=== PATIENT | male | born 1975 | race Caucasian/White ===

== ENCOUNTER 2021-09-12 18:57 | Inpatient (IN) | payer SELFPAY ==
[2021-09-12] MEDS ORDERED: Ketorolac Tromethamine 30 MG/ML VIAL ONE (20:10)
[2021-09-12] MEDS ORDERED: Morphine 4 MG/ML VIAL ONE (20:10)
[2021-09-12] MEDS ORDERED: cefTRIAXone\\ROCEPHIN 1 GM VIAL ONE (20:10)
[2021-09-12 20:36] LABS: Hemoglobin 15.6 g/dL (13.5-17.5); Mean Corpuscular HGB CONC 37.2 g/dL (32.0-36.0); Mean Corpuscular Hemoglobin 31.4 pg (27.0-33.0); Mean Corpuscular Volume 84.3 fl (81.2-95.1); Mean Platelet Volume 8.9 fl (7.4-10.4); Platelet Count 243 10x3/uL (150-450); RBC Distribution Width 13.2 % (11.5-14.5); Red Blood Cell (RBC) Count 4.97 10x6/uL (4.32-5.72); White Blood Cell (WBC) Count 7.7 10x3/uL (3.5-10.5)
[2021-09-12 20:38] LABS: Manual Diff?? YES
[2021-09-12 20:39] LABS: MDiff Complete? YES
[2021-09-12 20:52] LABS: ALT (SGPT) 33 U/L (8-55); AST (SGOT) 22 U/L (5-34); Albumin 3.8 g/dL (3.5-5.0); Alkaline Phosphatase 68 U/L (40-110); Anion Gap 16 mmol/L (10-20); BUN (Urea Nitrogen) 14 mg/dL (8.9-20.6); Bilirubin, Total 0.8 mg/dL (0.2-1.2); Calc. Creatinine Clearance 0 mL/min (70-130); Calcium 9.1 mg/dL (7.8-10.44); Carbon Dioxide 24 mmol/L (22-29); Chloride 100 mmol/L (98-107); Estimated GFR 112; Globulin 3.2 g/dL (2.4-3.5); Glucose 110 mg/dL (70-105); Lipase 57 U/L (8-78); Magnesium 1.9 mg/dL (1.6-2.6); Sodium 136 mmol/L (136-145)
[2021-09-12 21:40] LABS: Band 12 % (5-11); Eosinophils 3 % (0-10); Lymphocytes 12 % (21-51); Monocytes 11 % (0-10); Neutrophil 62 % (42-75); Platelet Morphology Comment Appears Adequate
[2021-09-12] MEDS ORDERED: Calcium Carbonate 500 MG ChewTAB PO PRN (22:24)
[2021-09-12] MEDS ORDERED: Acetaminophen 325 MG TAB PO PRN (22:24)
[2021-09-12] MEDS ORDERED: Ondansetron PF 4 MG/2 ML Vial IVP PRN (22:24)
[2021-09-12] MEDS ORDERED: Morphine 2 MG/ML VIAL SLOW IVP PRN (23:00)
[2021-09-12] MEDS ORDERED: Pharmacy to Dose ABX/VANCOMYCIN IVPB PRN (23:09)
[2021-09-12 23:30] VITALS: BMI 25.2
[2021-09-12] MEDS ORDERED: Vancomycin HCl 500 MG in Sodium Chloride 0.9% 100 ML IVPB SCH (23:59)
[2021-09-13] MEDS: Lactated Ringer's 1,000 ML IV SCH ×3 (02:35→22:40)
[2021-09-13] MEDS: Ketorolac Tromethamine 30 MG/ML VIAL IVP SCH ×3 (02:40→17:07)
[2021-09-13 05:25] LABS: Hemoglobin 14.3 g/dL (13.5-17.5); Mean Corpuscular HGB CONC 36.9 g/dL (32.0-36.0); Mean Corpuscular Hemoglobin 31.3 pg (27.0-33.0); Mean Corpuscular Volume 84.9 fl (81.2-95.1); Mean Platelet Volume 8.9 fl (7.4-10.4); Platelet Count 223 10x3/uL (150-450); RBC Distribution Width 13.2 % (11.5-14.5); Red Blood Cell (RBC) Count 4.57 10x6/uL (4.32-5.72); White Blood Cell (WBC) Count 7.1 10x3/uL (3.5-10.5)
[2021-09-13 05:49] LABS: Anion Gap 13 mmol/L (10-20); BUN (Urea Nitrogen) 11 mg/dL (8.9-20.6); CK (CPK) 68 U/L (30-200); Calc. Creatinine Clearance 144 mL/min (70-130); Calcium 8.3 mg/dL (7.8-10.44); Carbon Dioxide 26 mmol/L (22-29); Chloride 105 mmol/L (98-107); Estimated GFR 114; Glucose 101 mg/dL (70-105); Potassium 4.1 mmol/L (3.5-5.1); Sodium 140 mmol/L (136-145)
[2021-09-13 06:10] LABS: MDiff Complete? YES; Manual Diff?? YES
[2021-09-13 07:42] LABS: Band 7 % (5-11); Eosinophils 1 % (0-10); Lymphocytes 24 % (21-51); Monocytes 14 % (0-10); Neutrophil 52 % (42-75); Nucleated RBC 1 % (0); Reactive Lymphocytes 2 % (0-10)
[2021-09-13 07:43] LABS: Platelet Morphology Comment Appears Adequate
[2021-09-13] MEDS ORDERED: Meropenem 1 GM in Sodium Chloride 0.9% 100 ML IVPB SCH ×2 (08:49→10:00)
[2021-09-13] MEDS ORDERED: Enoxaparin Sodium 40 MG/0.4 ML SYRINGE SC SCH (09:00)
[2021-09-13] MEDS: Nicotine 21 MG PATCH TD SCH (09:21)
[2021-09-13] MEDS: Vancomycin HCl 1 GM in Sodium Chloride 0.9% 250 ML 250 ML IVPB SCH ×2 (09:22→17:03)
[2021-09-13 10:53] LABS: SARS-CoV-2 NAA Rapid Test DETECTED (NotDetected)
[2021-09-13] MEDS: Clindamycin/D5W 900 MG in Premix Bag 1 BAG IVPB SCH ×2 (12:29→20:50)
[2021-09-13 13:28] LABS: Hemoglobin A1c 4.3 % (4.0-6.0)
[2021-09-13] MEDS ORDERED: Neomycin-Polymyxin 1 ML AMP ONE (15:10)
[2021-09-13] MEDS ORDERED: PROPOFOL 20 ML ONE (17:09)
[2021-09-13] MEDS ORDERED: Lidocaine 2% PF 5 ML VIAL ONE (17:10)
[2021-09-13] MEDS ORDERED: Fentanyl 250 MCG/5 ML VIAL ONE (17:10)
[2021-09-13] MEDS ORDERED: Fentanyl 100 MCG/2 ML VIAL ONE (17:28)
[2021-09-13] MEDS ORDERED: Ondansetron PF 4 MG/2 ML Vial ONE (17:29)
[2021-09-13] MEDS ORDERED: cefTRIAXone\\ROCEPHIN 2 GM in Sodium Chloride 0.9% 100 ML IVPB SCH (20:00)
[2021-09-13] MEDS: HYDROcodone/Acetaminophen 5/325 mg Tablet PO PRN (20:50)
[2021-09-13] MEDS: Meropenem 1 GM in Sodium Chloride 0.9% 100 ML IVPB SCH (21:58)
[2021-09-13 23:31] LABS: Vancomycin, Trough 14.3 ug/mL
[2021-09-14] MEDS: Vancomycin HCl 1 GM in Sodium Chloride 0.9% 250 ML 250 ML IVPB SCH ×4 (01:00→23:21)
[2021-09-14] MEDS: Clindamycin/D5W 900 MG in Premix Bag 1 BAG IVPB SCH ×3 (02:53→17:52)
[2021-09-14] MEDS: HYDROcodone/Acetaminophen 5/325 mg Tablet PO PRN ×4 (02:54→21:42)
[2021-09-14] MEDS: Meropenem 1 GM in Sodium Chloride 0.9% 100 ML IVPB SCH ×3 (04:08→18:57)
[2021-09-14 04:14] LABS: #Eosinphils 0.1 10x3/uL (0.0-0.5); #Monocytes 1.2 10x3/uL (0.0-1.1); #Neutrophils 3.9 10x3/uL (1.5-8.4); %Basophils 0.1 % (0.0-2.0); %Eosinophils 1.6 % (0.0-6.0); %Lymphocytes 26.4 % (18.0-47.0); %Monocytes 16.5 % (0.0-10.0); %Neutrophils 55.3 % (40.0-75.0); Hemoglobin 13.2 g/dL (13.5-17.5); Mean Corpuscular HGB CONC 36.2 g/dL (32.0-36.0); Mean Corpuscular Volume 85.7 fl (81.2-95.1); Platelet Count 193 10x3/uL (150-450); RBC Distribution Width 13.4 % (11.5-14.5); Red Blood Cell (RBC) Count 4.26 10x6/uL (4.32-5.72)
[2021-09-14 06:52] LABS: ALT (SGPT) 21 U/L (8-55); AST (SGOT) 16 U/L (5-34); Albumin 3.3 g/dL (3.5-5.0); Alkaline Phosphatase 60 U/L (40-110); Anion Gap 14 mmol/L (10-20); BUN (Urea Nitrogen) 6 mg/dL (8.9-20.6); Bilirubin, Direct 0.2 mg/dL (0.1-0.3); Bilirubin, Total 0.5 mg/dL (0.2-1.2); CRP (Inflammatory) 11.77 mg/dL (= or < 0.5); Calc. Creatinine Clearance 154 mL/min (70-130); Calcium 8.3 mg/dL (7.8-10.44); Carbon Dioxide 26 mmol/L (22-29); Cardiac Risk 3.3 (Less than 4.5); Chloride 105 mmol/L (98-107); Cholesterol 93 mg/dl (< 200 Desired); Estimated GFR 116; Glucose 76 mg/dL (70-105); HDL Cholesterol 28 mg/dL (>60 Neg Risk); LDL Cholesterol, Calculated 44 mg/dL; Potassium 4.5 mmol/L (3.5-5.1); Protein, Total 6.3 g/dL (6.0-8.3); Sodium 140 mmol/L (136-145); Triglycerides 105 mg/dL (Less than 150)
[2021-09-14] MEDS: Nicotine 21 MG PATCH TD SCH (08:05)
[2021-09-14 13:12] LABS: Complement-C4 28.5 mg/dL (15-53)
[2021-09-14 23:50] LABS: Vancomycin, Trough 12.6 ug/mL
[2021-09-15] MEDS: Clindamycin/D5W 900 MG in Premix Bag 1 BAG IVPB SCH (02:35)
[2021-09-15] MEDS: HYDROcodone/Acetaminophen 5/325 mg Tablet PO PRN ×4 (03:04→20:23)
[2021-09-15] MEDS: Meropenem 1 GM in Sodium Chloride 0.9% 100 ML IVPB SCH ×3 (04:12→16:59)
[2021-09-15 06:10] LABS: Anion Gap 14 mmol/L (10-20); BUN (Urea Nitrogen) 8 mg/dL (8.9-20.6); Calc. Creatinine Clearance 159 mL/min (70-130); Calcium 8.6 mg/dL (7.8-10.44); Carbon Dioxide 27 mmol/L (22-29); Chloride 103 mmol/L (98-107); Estimated GFR 117; Glucose 98 mg/dL (70-105); Potassium 4.5 mmol/L (3.5-5.1); Sodium 139 mmol/L (136-145)
[2021-09-15 06:20] LABS: #Eosinphils 0.2 10x3/uL (0.0-0.5); #Monocytes 0.7 10x3/uL (0.0-1.1); #Neutrophils 2.6 10x3/uL (1.5-8.4); %Basophils 0.2 % (0.0-2.0); %Lymphocytes 33.5 % (18.0-47.0); %Monocytes 13.1 % (0.0-10.0); %Neutrophils 49.6 % (40.0-75.0); Hemoglobin 14.1 g/dL (13.5-17.5); Mean Corpuscular HGB CONC 36.6 g/dL (32.0-36.0); Mean Corpuscular Hemoglobin 30.5 pg (27.0-33.0); Mean Corpuscular Volume 83.2 fl (81.2-95.1); Platelet Count 237 10x3/uL (150-450); RBC Distribution Width 12.8 % (11.5-14.5); Red Blood Cell (RBC) Count 4.63 10x6/uL (4.32-5.72); White Blood Cell (WBC) Count 5.3 10x3/uL (3.5-10.5)
[2021-09-15] MEDS: Senokot S 8.6-50 MG TAB PO PRN (09:29)
[2021-09-15] MEDS: Nicotine 21 MG PATCH TD SCH (09:29)
[2021-09-15] MEDS: VANCOMYCIN 1.25 GM in Sodium Chloride 0.9% 250 ML 250 ML IVPB SCH ×2 (10:24→16:59)
[2021-09-15] MEDS ORDERED: Morphine 4 MG/ML VIAL ONE (12:04)
[2021-09-15] MEDS ORDERED: Morphine 4 MG/ML VIAL SLOW IVP SCH (13:00)
[2021-09-15 14:34] LABS: HIV (1/2) Antibody/Antigen Non-Reactive (NonReactive); HIV 1/2 INDEX 0.11 S/CO (<1.00); Syphilis Antibody Nonreactive (Nonreactive); Syphilis Antibody Index 0.06 S/CO (<1.00 Non-Reactive)
[2021-09-15] MEDS ORDERED: VANCOMYCIN 1.25 GM/250 ML BAG 1.25 GM in Premix Bag 1 BAG IVPB SCH (23:59)
[2021-09-16] MEDS: Senokot S 8.6-50 MG TAB PO PRN ×2 (00:51→08:57)
[2021-09-16 01:29] LABS: Hep C IgG Ab Reflex HepC Qnt (NonReactive)
[2021-09-16 01:30] LABS: Hep C Index 16.33 S/CO (0-0.79)
[2021-09-16] MEDS: Meropenem 1 GM in Sodium Chloride 0.9% 100 ML IVPB SCH ×3 (05:16→17:41)
[2021-09-16 05:42] LABS: #Eosinphils 0.2 10x3/uL (0.0-0.5); #Monocytes 0.5 10x3/uL (0.0-1.1); #Neutrophils 2.3 10x3/uL (1.5-8.4); %Basophils 0.4 % (0.0-2.0); %Eosinophils 4.9 % (0.0-6.0); %Lymphocytes 38.4 % (18.0-47.0); %Monocytes 9.6 % (0.0-10.0); %Neutrophils 45.9 % (40.0-75.0); Hemoglobin 14.6 g/dL (13.5-17.5); Mean Corpuscular HGB CONC 37.2 g/dL (32.0-36.0); Mean Corpuscular Hemoglobin 30.9 pg (27.0-33.0); Mean Corpuscular Volume 82.9 fl (81.2-95.1); Mean Platelet Volume 8.8 fl (7.4-10.4); Platelet Count 284 10x3/uL (150-450); RBC Distribution Width 12.9 % (11.5-14.5); Red Blood Cell (RBC) Count 4.73 10x6/uL (4.32-5.72); White Blood Cell (WBC) Count 4.9 10x3/uL (3.5-10.5)
[2021-09-16 05:48] LABS: Anion Gap 15 mmol/L (10-20); BUN (Urea Nitrogen) 8 mg/dL (8.9-20.6); Calc. Creatinine Clearance 159 mL/min (70-130); Calcium 8.8 mg/dL (7.8-10.44); Carbon Dioxide 27 mmol/L (22-29); Chloride 103 mmol/L (98-107); Estimated GFR 117; Glucose 90 mg/dL (70-105); Potassium 4.8 mmol/L (3.5-5.1); Sodium 140 mmol/L (136-145)
[2021-09-16 07:50] LABS: Vancomycin, Trough 23.8 ug/mL
[2021-09-16] MEDS: Enoxaparin Sodium 40 MG/0.4 ML SYRINGE SC SCH (08:57)
[2021-09-16] MEDS: HYDROcodone/Acetaminophen 5/325 mg Tablet PO PRN ×4 (08:57→22:15)
[2021-09-16] MEDS: Nicotine 21 MG PATCH TD SCH (10:15)
[2021-09-16] MEDS: Vancomycin HCl 1 GM in Sodium Chloride 0.9% 250 ML 250 ML IVPB SCH ×2 (11:50→22:21)
[2021-09-16] MEDS: Morphine 4 MG/ML VIAL SLOW IVP PRN (14:00)
[2021-09-17] MEDS: Meropenem 1 GM in Sodium Chloride 0.9% 100 ML IVPB SCH ×3 (02:08→08:45)
[2021-09-17] MEDS: Vancomycin HCl 1 GM in Sodium Chloride 0.9% 250 ML 250 ML IVPB SCH ×3 (04:57→17:07)
[2021-09-17] MEDS: Enoxaparin Sodium 40 MG/0.4 ML SYRINGE SC SCH (08:40)
[2021-09-17] MEDS: HYDROcodone/Acetaminophen 5/325 mg Tablet PO PRN ×4 (08:42→23:55)
[2021-09-17] MEDS: Senokot S 8.6-50 MG TAB PO PRN (08:43)
[2021-09-17] MEDS: Mupirocin 2% Ointment 22 GM Tube TOP SCH (08:45)
[2021-09-17] MEDS: Nicotine 21 MG PATCH TD SCH (09:29)
[2021-09-17] MEDS: Morphine 4 MG/ML VIAL SLOW IVP PRN (13:00)
[2021-09-17 19:20] LABS: Vancomycin, Trough 25.1 ug/mL
[2021-09-18] MEDS ORDERED: Sodium Chloride 0.9% 0 ML ONE (01:48)
[2021-09-18] MEDS: Meropenem 1 GM in Sodium Chloride 0.9% 100 ML IVPB SCH (01:50)
[2021-09-18 03:20] LABS: Vancomycin, Trough 6.7 ug/mL
[2021-09-18] MEDS: Vancomycin HCl 1 GM in Sodium Chloride 0.9% 250 ML 250 ML IVPB SCH ×3 (05:10→21:00)
[2021-09-18] MEDS: Mupirocin 2% Ointment 22 GM Tube TOP SCH (08:40)
[2021-09-18] MEDS: HYDROcodone/Acetaminophen 5/325 mg Tablet PO PRN ×3 (08:40→21:28)
[2021-09-18] MEDS: Enoxaparin Sodium 40 MG/0.4 ML SYRINGE SC SCH (08:40)
[2021-09-18] MEDS: Nicotine 21 MG PATCH TD SCH (09:36)
[2021-09-18] MEDS: Morphine 4 MG/ML VIAL SLOW IVP PRN (11:26)
[2021-09-18] MEDS ORDERED: Sodium Chloride 0.9% 250 ML 250 ML ONE (13:05)
[2021-09-19] MEDS: Vancomycin HCl 1 GM in Sodium Chloride 0.9% 250 ML 250 ML IVPB SCH ×3 (04:34→21:46)
[2021-09-19 04:47] LABS: Vancomycin, Trough 14.1 ug/mL
[2021-09-19] MEDS: Enoxaparin Sodium 40 MG/0.4 ML SYRINGE SC SCH (08:19)
[2021-09-19] MEDS: Mupirocin 2% Ointment 22 GM Tube TOP SCH (08:19)
[2021-09-19] MEDS: Nicotine 21 MG PATCH TD SCH (08:19)
[2021-09-19] MEDS: HYDROcodone/Acetaminophen 5/325 mg Tablet PO PRN ×3 (08:19→21:47)
[2021-09-20] MEDS: Vancomycin HCl 1 GM in Sodium Chloride 0.9% 250 ML 250 ML IVPB SCH (04:50)
[2021-09-20] MEDS: Mupirocin 2% Ointment 22 GM Tube TOP SCH ×2 (08:48→09:06)
[2021-09-20] MEDS: Enoxaparin Sodium 40 MG/0.4 ML SYRINGE SC SCH (08:48)
[2021-09-20] MEDS: Nicotine 21 MG PATCH TD SCH (08:49)
[2021-09-20] MEDS: HYDROcodone/Acetaminophen 5/325 mg Tablet PO PRN (08:49)
[2021-09-20] MEDS: Morphine 4 MG/ML VIAL SLOW IVP PRN (10:02)
[2021-09-20 11:45] VITALS: BP 148/76; TEMP 98
[2021-09-20 12:10] LABS: HCV RNA, log10 5.334 (.); Hep C PCR-Quant 216000 IU/mL (.)
== END 2021-09-20 13:40 | disposition home or self-care (01) | DRG 871 ==
LOC: CSHERS 18:57 → CSHTELE 22:45
PROVIDERS: ADMIT Student in an Organized Health Care Education/Training Program; ATTEND Internal Medicine
PROC: 0J9H0ZZ Drainage of Left Lower Arm Subcutaneous Tissue and Fascia, Open Approach (ICD-10-PCS; 2021-09-12)
PROC: 8E0ZXY6 Isolation (ICD-10-PCS; principal; 2021-09-13)
PROC: 0J9H0ZZ Drainage of Left Lower Arm Subcutaneous Tissue and Fascia, Open Approach (ICD-10-PCS; 2021-09-13)
DX: A41.9 Sepsis, unspecified organism (principal); U07.1 COVID-19; L03.114 Cellulitis of left upper limb; L02.414 Cutaneous abscess of left upper limb; F17.210 Nicotine dependence, cigarettes, uncomplicated; B19.20 Unspecified viral hepatitis C without hepatic coma; B95.62 Methicillin resistant Staphylococcus aureus infection as the cause of diseases classified elsewhere; R73.9 Hyperglycemia, unspecified; Z71.6 Tobacco abuse counseling
CPT/HCPCS: 10060; 36415; 36416; 80048; 80053; 80061; 80202; 82550; 83036; 83605; 83690; 83735; 84145; 84443; 85025; 86140; 86160; 86780; 86803; 87040; 87070; 87077; 87186; 87205; 87389; 87522; 96365; 96375; 97139; J0696; J1650; J1885; J2001; J2185; J2270; J2405; J2704; J3010; J3370; J3490; J7050; J7120; U0002

== ENCOUNTER 2021-09-22 08:14 | Outpatient (CLI) | payer SELFPAY | END 2021-09-22 08:15 | disposition home or self-care (01) | LOC: CSHWCC 08:14 | PROVIDERS: ATTEND Nurse Practitioner Family | DX: T81.89XD Other complications of procedures, not elsewhere classified, subsequent encounter (principal) ==

== ENCOUNTER 2021-09-26 14:16 | Outpatient (CLI) | payer SELFPAY | END 2021-09-26 14:17 | disposition home or self-care (01) | LOC: CSHWCC 14:16 | PROVIDERS: ATTEND Nurse Practitioner Family | DX: T81.89XD Other complications of procedures, not elsewhere classified, subsequent encounter (principal) ==